=== PATIENT | female | born 1945 | race Caucasian/White ===

== ENCOUNTER 2017-12-09 10:23 | Outpatient (REF) | payer OTHER, SELFPAY ==
[2017-12-09 22:37] LABS: ALT 30 U/L (12-78); AST 23 U/L (15-37); Albumin 4.1 g/dL (3.4-5.0); Alkaline Phosphatase 133 U/L (46-116); Anion Gap 11.5 mmol/L (3-11); BUN 52 mg/dL (7-18); Bilirubin, Total 0.4 mg/dL (0.2-1.0); CO2 23.5 mmol/L (21.0-32.0); CREATININE 1.79 mg/dL (0.55-1.02); Calcium 9.8 mg/dL (8.5-10.1); Chloride 104 mmol/L (98-107); Cholesterol 203 mg/dL (50-200); Estimated GFR 27.92 (mL/min/1.73m2); Glucose 181 mg/dL (70-100); HDL Cholesterol 49 mg/dL (40-60); LDL CHOLESTEROL 122 mg/dL (<100); Potassium 4.4 mmol/L (3.5-5.1); Sodium 139 mmol/L (136-145); TSH (W/Ref FT4) 2.05 uIU/mL (0.358-3.74); Total Protein 7.9 g/dL (6.4-8.2); Triglyceride 190 mg/dL (30-150)
== END 2017-12-09 10:24 ==
LOC: NCHCN 10:23
PROVIDERS: PCP Family Medicine; Visit Provider Family Medicine
DX: N18.9 Chronic kidney disease, unspecified (principal); E78.5 Hyperlipidemia, unspecified; E11.9 Type 2 diabetes mellitus without complications; I10 Essential (primary) hypertension; E03.9 Hypothyroidism, unspecified; M10.9 Gout, unspecified
CPT/HCPCS: 80053; 80061; 83721; 84443

== ENCOUNTER 2017-12-29 20:43 | Outpatient (REF) | payer OTHER, SELFPAY ==
[2017-12-29 21:49] LABS: BUN 34 mg/dL (7-18); CREATININE 1.32 mg/dL (0.55-1.02); Calcium 9.3 mg/dL (8.5-10.1); Chloride 104 mmol/L (98-107); Estimated GFR 39.56 (mL/min/1.73m2); Glucose 140 mg/dL (70-100); Potassium 4.6 mmol/L (3.5-5.1); Sodium 142 mmol/L (136-145)
[2017-12-30 09:46] LABS: Hemoglobin A1C 6.7 % (4.5-6.2)
== END 2017-12-29 21:03 ==
LOC: NCHCN 20:43
PROVIDERS: PCP Family Medicine; Visit Provider Family Medicine
DX: E11.9 Type 2 diabetes mellitus without complications (principal); N18.6 End stage renal disease
CPT/HCPCS: 80048; 83036

== ENCOUNTER 2019-01-12 09:05 | Outpatient (REF) | payer OTHER, SELFPAY ==
[2019-01-12 22:26] LABS: Anion Gap 11.2 mmol/L (3-11); BUN 35 mg/dL (7-18); CO2 23.8 mmol/L (21.0-32.0); CREATININE 1.54 mg/dL (0.55-1.02); Calcium 9.5 mg/dL (8.5-10.1); Chloride 106 mmol/L (98-107); Estimated GFR 33.02 (mL/min/1.73m2); Glucose 156 mg/dL (70-100); Potassium 4.6 mmol/L (3.5-5.1); Sodium 141 mmol/L (136-145)
== END 2019-01-12 09:25 ==
LOC: NCHCO 09:05
PROVIDERS: PCP Family Medicine; Visit Provider Family Medicine
DX: N18.9 Chronic kidney disease, unspecified (principal)
CPT/HCPCS: 80048

== ENCOUNTER 2019-01-20 15:30 | Outpatient (REF) | payer OTHER, SELFPAY ==
[2019-01-20 21:55] LABS: ALT 33 U/L (14-59); Cholesterol 196 mg/dL (50-200); HDL Cholesterol 47 mg/dL (40-60); Triglyceride 412 mg/dL (30-150)
[2019-01-20 22:32] LABS: LDL CHOLESTEROL 115 mg/dL (<100)
== END 2019-01-20 15:50 ==
LOC: NCHCN 15:30
PROVIDERS: PCP Family Medicine; Visit Provider Family Medicine
DX: I10 Essential (primary) hypertension (principal); E11.9 Type 2 diabetes mellitus without complications; I25.10 Atherosclerotic heart disease of native coronary artery without angina pectoris; E03.9 Hypothyroidism, unspecified
CPT/HCPCS: 80061; 83721; 84443; 84460

== ENCOUNTER 2019-06-10 21:24 | Outpatient (REF) | payer OTHER, SELFPAY ==
[2019-06-10 22:09] LABS: COMMENT (LAB VIEW ONLY) 96.31 mg/dL; Microalb ug/mg Crea 89.7 ug/mg Cr
== END 2019-06-10 21:44 ==
LOC: NCHCN 21:24
PROVIDERS: PCP Family Medicine; Visit Provider Family Medicine
DX: E11.9 Type 2 diabetes mellitus without complications (principal); I10 Essential (primary) hypertension; N18.9 Chronic kidney disease, unspecified
CPT/HCPCS: 82043; 82570

== ENCOUNTER 2020-02-01 13:00 | Outpatient (REF) | payer OTHER, SELFPAY ==
[2020-02-01 22:07] LABS: Calculated LDL 121 mg/dL (<100); Cholesterol 223 mg/dL (<200); HDL Cholesterol 59 mg/dL (40-60); Triglyceride 218 mg/dL (<150)
== END 2020-02-01 13:20 ==
LOC: NCHCN 13:00
PROVIDERS: PCP Family Medicine; Visit Provider Family Medicine
DX: E78.5 Hyperlipidemia, unspecified (principal)
CPT/HCPCS: 80061

== ENCOUNTER 2020-08-01 16:19 | Outpatient (REF) | payer OTHER, SELFPAY ==
[2020-08-01 14:20] LABS: BUN 43 mg/dL (7-18); CREATININE 1.5 mg/dL (0.55-1.02); Calcium 9.9 mg/dL (8.5-10.1); Chloride 107 mmol/L (98-107); Estimated GFR 33.94 (mL/min/1.73m2); Glucose 128 mg/dL (74-106); Potassium 4.5 mmol/L (3.5-5.1); Sodium 142 mmol/L (136-145); TSH 2.09 uIU/mL (0.36-3.74)
[2020-08-01 14:21] LABS: COMMENT (LAB VIEW ONLY) 70.99 mg/dL; Microalb ug/mg Crea 64.4 ug/mg Cr
== END 2020-08-01 16:20 | disposition home or self-care (01) ==
LOC: NCHCN 16:19
PROVIDERS: PCP Family Medicine; Visit Provider Family Medicine
DX: E03.9 Hypothyroidism, unspecified (principal); E11.29 Type 2 diabetes mellitus with other diabetic kidney complication; Z00.00 Encounter for general adult medical examination without abnormal findings
CPT/HCPCS: 80048; 82043; 82570; 84443

== ENCOUNTER 2021-02-01 14:52 | Outpatient (REF) | payer MEDICARE, SELFPAY ==
[2021-02-01 21:57] LABS: Anion Gap 10.3 mmol/L (3-11); BUN 46 mg/dL (7-18); CO2 24.7 mmol/L (21.0-32.0); CREATININE 2.2 mg/dL (0.55-1.02); Calcium 9.3 mg/dL (8.5-10.1); Chloride 107 mmol/L (98-107); Estimated GFR 21.76 (mL/min/1.73m2); Glucose 132 mg/dL (74-106); PHOSPHORUS 4.4 mg/dL (2.6-4.7); Potassium 5.5 mmol/L (3.5-5.1); Sodium 142 mmol/L (136-145)
== END 2021-02-01 14:53 | disposition home or self-care (01) ==
LOC: NCHCN 14:52
PROVIDERS: PCP Family Medicine; Visit Provider Family Medicine
DX: N18.9 Chronic kidney disease, unspecified (principal); E11.29 Type 2 diabetes mellitus with other diabetic kidney complication
CPT/HCPCS: 80048; 83986; 84100

== ENCOUNTER 2021-02-11 09:44 | Outpatient (REF) | payer MEDICARE, SELFPAY ==
[2021-02-11 14:28] LABS: Potassium 4.6 mmol/L (3.5-5.1)
== END 2021-02-11 09:45 | disposition home or self-care (01) ==
LOC: NCHCN 09:44
PROVIDERS: PCP Family Medicine; Visit Provider Family Medicine
DX: E87.5 Hyperkalemia (principal)
CPT/HCPCS: 84132

== ENCOUNTER 2021-08-06 15:01 | Outpatient (REF) | payer MEDICARE, SELFPAY ==
[2021-08-06 17:47] LABS: Microalb ug/mg Crea 68.8 ug/mg Cr
[2021-08-06 18:09] LABS: ALT 33 U/L (14-59); AST 27 U/L (15-37); Albumin 4.1 g/dL (3.4-5.0); Alkaline Phosphatase 154 U/L (46-116); BUN 43 mg/dL (7-18); Bilirubin, Total 0.5 mg/dL (0.2-1.0); Calcium 9.5 mg/dL (8.5-10.1); Calculated LDL 113 mg/dL (<100); Chloride 106 mmol/L (98-107); Cholesterol 204 mg/dL (<200); Estimated GFR 24.29 (mL/min/1.73m2); Glucose 135 mg/dL (74-106); HDL Cholesterol 56 mg/dL (40-60); Potassium 4.9 mmol/L (3.5-5.1); Sodium 140 mmol/L (136-145); TSH 1.79 uIU/mL (0.36-3.74); Total Protein 7.5 g/dL (6.4-8.2); Triglyceride 178 mg/dL (<150)
== END 2021-08-06 15:02 | disposition home or self-care (01) ==
LOC: NCHCN 15:01
PROVIDERS: PCP Family Medicine; Visit Provider Family Medicine
DX: Z00.00 Encounter for general adult medical examination without abnormal findings (principal); E03.9 Hypothyroidism, unspecified; E11.29 Type 2 diabetes mellitus with other diabetic kidney complication; N18.9 Chronic kidney disease, unspecified; F51.04 Psychophysiologic insomnia; R01.1 Cardiac murmur, unspecified
CPT/HCPCS: 80053; 80061; 85027; 82043; 82570; 84443

== ENCOUNTER 2021-08-09 13:33 | Outpatient (REF) | payer BC, SELFPAY ==
[2021-08-09 14:08] LABS: HCT 39.2 % (36.0-46.0); HGB 12.6 g/dL (11.2-15.7); MCH 28.9 pg (27.0-33.0); MCHC 32.1 % (32.0-36.0); MCV 90 fL (80-95); MPV 14.3 fL (8.0-11.0); Platelet Count 157 10^3/uL (130-400); RBC 4.36 10^6/uL (3.93-5.22); RDW 13.5 % (11.7-14.6); RDW-SD 44.4 fL; WBC 8.31 10^3/uL (4.4-10.8)
== END 2021-08-09 13:34 | disposition home or self-care (01) ==
LOC: NCHCN 13:33
PROVIDERS: PCP Family Medicine; Visit Provider Family Medicine
DX: Z00.00 Encounter for general adult medical examination without abnormal findings (principal); E11.29 Type 2 diabetes mellitus with other diabetic kidney complication; E03.9 Hypothyroidism, unspecified; N18.9 Chronic kidney disease, unspecified
CPT/HCPCS: 85027

== ENCOUNTER 2022-09-26 09:29 | Outpatient (REF) | payer MEDICARE, SELFPAY ==
[2022-09-26 15:03] LABS: Anion Gap 10.4 mmol/L (3-11); BUN 42 mg/dL (7-18); CO2 22.6 mmol/L (21.0-32.0); CREATININE 1.8 mg/dL (0.55-1.02); Calcium 9.4 mg/dL (8.5-10.1); Calculated LDL 100 mg/dL (<100); Chloride 106 mmol/L (98-107); Cholesterol 183 mg/dL (<200); Estimated GFR 28.84 (mL/min/1.73m2); Glucose 135 mg/dL (74-106); HDL Cholesterol 61 mg/dL (40-60); Potassium 4.3 mmol/L (3.5-5.1); Sodium 139 mmol/L (136-145); TSH 2.72 uIU/mL (0.36-3.74); Triglyceride 112 mg/dL (<150)
== END 2022-09-26 09:30 | disposition home or self-care (01) ==
LOC: NCHCN 09:29
PROVIDERS: PCP Family Medicine; Visit Provider Family Medicine
DX: E11.29 Type 2 diabetes mellitus with other diabetic kidney complication (principal); E03.9 Hypothyroidism, unspecified; E11.22 Type 2 diabetes mellitus with diabetic chronic kidney disease; I12.9 Hypertensive chronic kidney disease with stage 1 through stage 4 chronic kidney disease, or unspecified chronic kidney disease; N18.4 Chronic kidney disease, stage 4 (severe); E78.5 Hyperlipidemia, unspecified
CPT/HCPCS: 80048; 80061; 83036; 84443

== ENCOUNTER 2022-10-03 15:00 | Outpatient (REF) | payer MEDICARE, SELFPAY ==
[2022-10-03 17:49] LABS: Microalb ug/mg Crea 46.6 ug/mg Cr
== END 2022-10-03 15:01 | disposition home or self-care (01) ==
LOC: NCHCN 15:00
PROVIDERS: PCP Family Medicine; Visit Provider Family Medicine
DX: Z00.00 Encounter for general adult medical examination without abnormal findings (principal); E11.29 Type 2 diabetes mellitus with other diabetic kidney complication; I10 Essential (primary) hypertension
CPT/HCPCS: 82043; 82570

== ENCOUNTER 2023-09-17 15:27 | Outpatient (REF) | payer MEDICARE, SELFPAY ==
[2023-09-17 21:22] LABS: BUN 36 mg/dL (7-18); Calcium 9.2 mg/dL (8.5-10.1); Calculated LDL 51 mg/dL (<100); Chloride 106 mmol/L (98-107); Cholesterol 176 mg/dL (<200); Estimated GFR 25.26 (mL/min/1.73m2); Glucose 199 mg/dL (74-106); HDL Cholesterol 66 mg/dL (40-60); Potassium 4.2 mmol/L (3.5-5.1); Sodium 141 mmol/L (136-145); Triglyceride 298 mg/dL (<150)
[2023-09-17 21:28] LABS: COMMENT (LAB VIEW ONLY) 103.95 mg/dL; Microalb ug/mg Crea 89.9 ug/mg Cr
[2023-09-17 21:40] LABS: HCT 37.6 % (36.0-46.0); HGB 12.3 g/dL (11.2-15.7); MCH 29.2 pg (27.0-33.0); MCHC 32.7 % (32.0-36.0); MCV 89 fL (80-95); RBC 4.21 10^6/uL (3.93-5.22); RDW-SD 45.3 fL; WBC 9.38 10^3/uL (4.4-10.8)
[2023-09-17 21:42] LABS: Platelet Count 121 10^3/uL (130-400)
[2023-09-18 18:22] LABS: Parathyroid Hormone,Intact 94 pg/mL (19-88)
== END 2023-09-17 15:28 | disposition home or self-care (01) ==
LOC: NCHCN 15:27
PROVIDERS: PCP Family Medicine; Visit Provider Family Medicine
DX: N18.4 Chronic kidney disease, stage 4 (severe) (principal)
CPT/HCPCS: 80048; 80061; 85027; 82043; 82570; 83970

== ENCOUNTER 2023-10-12 15:40 | Outpatient (REF) | payer MEDICARE, SELFPAY ==
[2023-10-12 15:52] LABS: TSH 1.95 uIU/Ml (0.36-3.74)
== END 2023-10-12 15:41 | disposition home or self-care (01) ==
LOC: NCHCN 15:40
PROVIDERS: PCP Family Medicine; Visit Provider Family Medicine
DX: E03.9 Hypothyroidism, unspecified (principal)
CPT/HCPCS: 84443

== ENCOUNTER 2024-08-19 14:39 | Outpatient (REF) | payer MEDICARE, SELFPAY ==
[2024-08-19 16:25] LABS: Calculated LDL 107 mg/dL (<100); Cholesterol 207 mg/dL (<200); HDL Cholesterol 63 mg/dL (>or=50); TSH 2.05 uIU/mL (0.36-3.74); Triglyceride 186 mg/dL (<150)
== END 2024-08-19 14:40 | disposition home or self-care (01) ==
LOC: NCHCN 14:39
PROVIDERS: PCP Family Medicine; Visit Provider Family Medicine
DX: E03.9 Hypothyroidism, unspecified (principal); E78.5 Hyperlipidemia, unspecified
CPT/HCPCS: 80061; 84443

== ENCOUNTER 2024-10-24 16:08 | Outpatient (REF) | payer MEDICARE, SELFPAY ==
[2024-10-24 19:13] LABS: TSH (W/Ref FT4) 1.51 uIU/mL (0.36-3.74)
== END 2024-10-24 16:09 | disposition home or self-care (01) ==
LOC: NCHCN 16:08
PROVIDERS: PCP Family Medicine; Visit Provider Nurse Practitioner Family
DX: I48.91 Unspecified atrial fibrillation (principal)
CPT/HCPCS: 84443

== ENCOUNTER 2024-12-02 11:50 | Outpatient (REF) | payer MEDICARE, SELFPAY ==
[2024-12-02 16:41] LABS: COMMENT (LAB VIEW ONLY) 55.73 mg/dL
[2024-12-02 16:56] LABS: Microalb ug/mg Crea 373.8 ug/mg Cr
== END 2024-12-02 11:51 | disposition home or self-care (01) ==
LOC: NCHCN 11:50
PROVIDERS: PCP Family Medicine; Visit Provider Family Medicine
DX: E11.21 Type 2 diabetes mellitus with diabetic nephropathy (principal)
CPT/HCPCS: 82043; 82570